=== PATIENT | female | born 1955 | race Caucasian/White ===

== ENCOUNTER 2023-06-04 10:28 | Outpatient (AMB) | payer MEDICARE, SELFPAY ==
[2023-06-04 11:01] VITALS: BP 124/68; PULSE 68; TEMP 36.6; O2SAT 98
--- NOTE | 2023-06-04 11:01 | MHC.OFFWIV ---
Intake Vital Signs 06/04/23 11:01 Weight 176 lb BP 124/68 Blood Pressure Location Rt brachial Position Sitting Pulse 68 Pulse Source Pulse Oximeter Temp 97.8 F Temp Source Temporal Artery Scan Pulse Oximetry (%) 98 Intake Visit Reasons: [employer] Mouth Pain Intake Note: pt is here for c/o broken tooth on right side, unable to feel all of right side due to accident over a year ago. Patient Tobacco Use Status: Never used Tobacco Allergies Unable to Assess Allergy (Verified 06/04/23 11:33) Medication List - Last Reconciled 06/04/23 by Piter Sánchez MD amlodipine 5 mg PO DAILY aspirin 81 mg PO DAILY atorvastatin 40 mg PO DAILY cetirizine 10 mg PO DAILY eplerenone mg PO ezetimibe 10 mg PO DAILY fluoxetine 40 mg PO DAILY gabapentin mg PO lorazepam 0.5 mg PO BID PRN omeprazole 20 mg PO DAILY trazodone 50 mg PO BEDTIME Do you need a note to return to daycare/school/sports/work: Yes HPI [employer] Mouth Pain HPI Details 67-year-old female presents to the office for a sick visit. Patient had a stroke in July of 2022. She has received dual expressive aphasia. She can speak clearly but has to make an effort to speak. She is complaining of pain in the oral cavity since June. She feels her dental hygiene is not good and needs a dental appointment. Because of her expressive aphasia she is not able to make appointments over the phone. Her children are too busy to make appointments for her. She saw her primary care physician last week but did not make an effort to discuss this matter. Her pain symptoms are less but she believes that she needs a dental checkup. [facility] Social History Patient Tobacco Use Status: Never used Tobacco Physical Exam Vital Signs: Last Vital Signs Temp 97.8 F 06/04/23 11:01 Pulse 68 06/04/23 11:01 BP 124/68 06/04/23 11:01 Pulse Ox 98 06/04/23 11:01 HEENT Other: Face: Minimal tenderness on palpation on the right cheek. Head: Yes normal to inspection Assessment & Plan Assessment & Plan (1) Facial pain: Code(s): R51.9 - Headache, unspecified Plan: I spoke to her daughter Leydi at [phone]. Leydi has agreed to make the dental appointment for her mother. The same was informed to the patient and was reassured. Coding Level of Care Code Est Pt Level 3 (30422) Diagnoses Facial pain R51.9
== END 2023-06-04 11:54 | disposition home or self-care (01) ==
PROVIDERS: Visit Provider Internal Medicine
DX: R51.9 Headache, unspecified (principal)
CPT/HCPCS: 99213

== ENCOUNTER 2024-02-25 13:28 | Outpatient (AMB) | payer MEDICARE, SELFPAY ==
--- NOTE | 2024-02-25 13:43 | AM.OFFWIN_ITS ---
Intake Vital Signs 02/25/24 14:03 Height 5 ft Weight 186 lb BMI 36.3 BP 110/78 Blood Pressure Location Lt brachial Position Sitting Pulse 53 Pulse Source Pulse Oximeter Temp 97.2 F Temp Source Temporal Artery Scan Pulse Oximetry (%) 98 Oxygen Delivery Method Room Air Intake Visit Reasons: EP LT eye redness, itchy Intake Note: pt is here today for lft eye redness itchy started today Patient Tobacco Use Status: Never used Tobacco Allergies Unable to Assess Allergy (Verified 02/25/24 14:06) Do you need a note to return to daycare/school/sports/work: No HPI HPI Comments History of Present Illness Details Patient is a 68-year-old female with a history of a stroke with residual right-sided deficits and aphasia who was complaining of left eye redness and watering since this morning. She states she was at her speech therapist appointment and something she thinks went into her eye and it has been irritated, red and watering since. She denies any vision changes or blurriness. Patient states her left eye is her good eye so she is just very concerned, she does wear glasses but does not wear contacts. [facility] Social History Patient Tobacco Use Status: Never used Tobacco Review of Systems Const All systems reviewed & are unremarkable except as noted in HPI and below Physical Exam Vital Signs: Last Vital Signs Temp 97.2 F 02/25/24 14:03 Pulse 53 02/25/24 14:03 BP 110/78 02/25/24 14:03 Pulse Ox 98 02/25/24 14:03 Oxygen Delivery Method Room Air 02/25/24 14:03 BMI result Body Mass Index 36.3 Const General: cooperative, healthy appearing, comfortable, no acute distress and well developed Orientation/consciousness: patient oriented x3 Limitations: no limitations Eyes Visual Vallejo: normal visual vallejo by confrontation Alignment and Position: alignment normal and position normal Eyelids: Yes eyelids normal Conjunctivae: conjunctival abnormal left conjunctival injection and discharge (watery) Sclerae: sclerae normal Corneas: fluorescein used (no abrasion noted on left eye) Pupils: Equal, round and reactive pupils present EOM: EOMs intact bilaterally Resp Effort & Inspection: normal respiratory effort and able to speak in complete sentences Neuro General: patient oriented x3 Cranial nerves: Yes Equal, round and reactive pupils present Office Procedures Fluorescein eye exam Details: Applied tetracaine drop to left eye and then examined under fluorescein, no corneal abrasions noted Assessment & Plan Assessment & Plan (1) Injury of conjunctiva and corneal abrasion of left eye w/o FB: Code(s): S05.02XA - Injury of conjunctiva and corneal abrasion without foreign body, left eye, initial encounter Qualifiers: Encounter type: initial encounter Qualified Code(s): S05.02XA - Injury of conjunctiva and corneal abrasion without foreign body, left eye, initial encounter Plan: Did not see abrasion with fluorescein (difficult to see upper area of eye) however recommended if symptoms get worse 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 Medications: New erythromycin Apply ribbon to lower inner eyelid of the left eye 0.5 inches ophthalmic (eye) QID 3.5 grams 0RF Coding Level of Care Code New Pt Level 3 (27369) Diagnoses Injury of conjunctiva and corneal abrasion of left eye without foreign body, initial encounter S05.02XA Encounter type: initial encounter
[2024-02-25 14:03] VITALS: BP 110/78; PULSE 53; TEMP 36.2; O2SAT 98; BMI 36.3
== END 2024-02-25 14:50 | disposition home or self-care (01) ==
PROVIDERS: Visit Provider Physician Assistant
DX: S05.02XA Injury of conjunctiva and corneal abrasion without foreign body, left eye, initial encounter (principal)
CPT/HCPCS: 99203

== ENCOUNTER 2024-05-08 10:15 | Outpatient (RCR) | payer MEDICARE, SELFPAY | END 2024-05-08 16:23 | disposition home or self-care (01) | LOC: HO.OT 10:15 | PROVIDERS: PCP Family Medicine; Visit Provider Family Medicine | DX: I69.30 Unspecified sequelae of cerebral infarction (principal) | CPT/HCPCS: 97165 ==